=== PATIENT | female | born 1940 | race Caucasian/White ===

== ENCOUNTER 2024-03-11 14:26 | Outpatient (REF) | payer BC, SELFPAY ==
[2024-03-11 18:30] LABS: Blood Urea Nitrogen 26 mg/dL (9-16); Calcium 9.9 mg/dL (8.4-10.2); Carbon Dioxide 28 mmol/L (22-29); Chloride 106 mmol/L (96-108); Estimated Glomerular Filt Rate 57; Glucose Random 130 mg/dL (60-115); Potassium 4.2 mmol/L (3.3-5.1); Sodium 144 mmol/L (135-145)
== END 2024-03-11 14:27 | disposition home or self-care (01) ==
LOC: HO.WFDLDS 14:26
PROVIDERS: Visit Provider Internal Medicine
DX: N18.31 Chronic kidney disease, stage 3a (principal); Z13.1 Encounter for screening for diabetes mellitus
CPT/HCPCS: 36415; 82310; 82374; 82435; 82565; 82947; 84132; 84295; 84520

== ENCOUNTER 2024-12-23 09:23 | Outpatient (AMB) | payer BC, SELFPAY ==
--- OUTSIDE RECORDS SUMMARY | 2024-12-23 09:54 | XMS_ITS | Encounter Summary ---
Author Organization [facility] Address [address] [place] [address] [place] [address] Phone Care Team Providers Care Nonprofit Fundraiser Name Role Phone Rakesh Tse MD Primary Care Provider + Reason for Visit * Reason Onset Date Comments Appointment 12/16/2024 Encounter Details Date Type Department Care Team (Late st Contact Info) Description 12/16/2024 Telephone [email or web address] Rheumatology [address] [place] [address] Snehal Gentile MD, MPH [address] [facility], [address] [place] [address] [email or web address] Appointment Social History Tobacco Use Types Packs/Day Years Used Date Smoking Tobacco: Never Smokeless Tobacco: Never Alcohol Use Standard Drinks/Week Comments Never 0 (1 standard drink = 0.6 oz pur e alcohol) Education Answer Date Recorded Are you interested in more education? Not on branden e 11/15/2022 Are you concerned about learning? Not on file 11/15/2022 No 11/15/2022 No 11/15/2022 Digital Access Answer Date Recorded No 11/15/2022 No 11/15/2022 Reliable internet access at home? Not on file 11/15/2022 Device with a working camera? Not on file Comments Unknown Sex and Gender Information Value Date Recorded Sex Assigned at Not on file Legal Sex Female 10:09 AM EDT Gender Identity Not on file Sexual Orientation Not on file documented as of this encounter Progress Notes * Nicolle Rhodes - 12/16/2024 9:17 AM EDT Pt called in stated he 8 M F/u was not made please review and advise what , she will be seeing Central Support [facility] [employer] (Please do not reply to this user; this inbox is not monitored.) Thank you. documented in this encounter Plan of Treatment Not on file documented as of this encounter Visit Diagnoses Not on filedocumented in this encounter Care Teams Nonprofit Fundraiser Relationship Specialty Start Date End Date Rakesh Tse MD [address] [place] [address] PCP - General Internal Medicine 11/15/22 documented as of this encounter Additional Source Comments The information contained in this document represents components of the legal health record. It is not the complete legal health record.[facility]
== END 2024-12-23 10:09 | disposition home or self-care (01) ==
LOC: HO.HMGAL 09:23
PROVIDERS: PCP Internal Medicine; Visit Provider Registered Nurse Emergency
DX: J30.89 Other allergic rhinitis (principal)
CPT/HCPCS: 95117; 95165

== ENCOUNTER 2024-12-30 14:51 | Outpatient (AMB) | payer BC, SELFPAY ==
--- OUTSIDE RECORDS SUMMARY | 2024-10-08 04:00 | XMS_ITS | Continuity of Care Document ---
Author Organization [facility] Address [address] [place] [address] Phone Care Team Providers Care Steam Bone Press Tender Name Role Phone Malik MENDEZ, RVT, SEAN, [...] Surgical Stockings CVR Reveal Thigh High 20-30 Office/Oupt E&M New Pt 30 Mins- CT & [place] Surgical Stockings CVR Reveal Thigh High 20-30 Duplex Scan-extrem Veins; Uni/ CT & [place] N Advance Directives Directive Yes / No Effective Date File Name No Information Encounters Encounter Description Practice Location Reason(s) For Visit Diagnoses Date Provider Providers Copied on [facility]counter [facility] TIR[facility], [address] [place] [address] Dr Taylor 1000SuKassidy bro MD, [id number], tel:[phone] CVR - [facility] Encounter for follow-up examination after completed treatment for conditions other than malignant neoplasmVarico se veins of left lower extremity with pain 5 Malik MENDEZ RVT, SEAN Walton. [address] [place] [address], [place], [place], [id number] , [place]. [phone] Referring Provider: Rakesh Tse MD, [address] [place] [address], [address]. tel:[phone] [facility], [address] [place] [address] Dr Taylor 1000K[place] bro [place], [id number], [place] tel:[phone] R [facility] Chronic venous hypertension (idiopathic) with inflammation of left lower extremity 5 Malik MENDEZ RVT, SEAN Walton. [address] [place] [address], [place], [place], [id number] , [place]. tel:[phone] Referring Provider: Rakesh Tse MD, [address] [place] [address], [address]. tel:[phone] [place] [facility], [address] [place] [address] Dr Taylor 1000K[place] bro [place], [id number], [place] tel:[phone] CVR [facility] Varicose veins of left lower extremity with other complications 5 Malik MENDEZ RVT, RPVI Robert. [address] [place] [address], [place], [place], [id number] , [place]. tel:[phone] Referring Provider: Rakesh Tse MD, [address] [place] [address], [address]. tel:[phone] Office/Outpt E&M Established 15 Mins- CT & [place] [facility], [address] [place] [address] Dr Taylor 1000SuKassidy bro [place], [id number], [place] tel:[phone] [facility] Chronic venous hypertension (idiopathic) without complications of left lower extremityVenou s insufficiency (chronic) (peripheral)Pr uritus, unspecified Apr-3 0- 5 Malik MENDEZ RVT, RPVI Robert. [address] [place] [address], [facility], [place], [id number] , [place]. [phone] Referring Provider: Rakesh Tse MD, [address] [place] [address], [address]. tel:[phone] [facility], [address] [place] [address] [facility] [address] [address], [id number], [place] tel:[phone] [facility] Encounter for follow-up examination after completed treatment for conditions other than malignant neoplasmChroni c venous hypertension (idiopathic) with other complications of bilateral lower extremity Apr-3 0 5 Malik MENDEZ RVT, RPVI Robert. [address] [place] [address], [place], [place], [id number] , [place]. [phone] Referring Provider: Rakesh Tse MD, [address] [place] [address], [address]. tel:[phone] [place] [facility], [address] [place] [address] [facility] [address] [place] [address], [id number], [place] tel:[phone] [facility] Varicose veins of right lower extremity with inflammation Apr-2 5 Malik MENDEZ RVT, RPVI Robert. [address] [place] [address], [facility], [place], [id number] , [place]. [phone] Referring Provider: Rakesh Tse MD, [address] [place] [address], [address]. tel:[phone] [facility], [address] [place] [address] [facility] [address] [address], [id number], [place] tel:[phone] [facility] Chronic venous hypertension (idiopathic) with inflammation of right lower extremity Apr-2 2 5 Malik MENDEZ RVT, RPVI Robert. [address] [place] [address], [facility], [place], [id number] , [place]. tel:[phone] Referring Provider: Rakesh Tse MD, [address] [place] [address], [address]. tel:[phone] [facility], [address] [place] [address] Dr Taylor 1000SuKassidy bro [place], [id number], [place] tel:[phone] CVR - [place] [facility] [place] No Information 5 Malik MENDEZ RVT, SEAN Walton. [address] [place] [address], [facility] [place], [id number] , [place]. [phone] Office/Outpt E&M Established 10 Mins- Telemedicine CT & [place] [facility], [address] [place] [address] Dr Taylor 999K[place] bro [place], [id number], [place] tel:[phone] CVR - [facility] Non-pressure chronic ulcer of other part of right foot with unspecified severityChroni c venous hypertension (idiopathic) with ulcer and inflammation of right lower extremityCramp and spasmPruritus, unspecified 5 Malik MENDEZ RVT, SEAN Walton. [address] [place] [address], [facility] [place], [id number] , [place]. tel:[phone] Referring Provider: Rakesh Tse MD, [address] [place] [address], [address]. tel:[phone] [facility], [address] [place] [address] Dr Taylor 1000SuK[place]idy bro [place], [id number], [place] tel:[phone] CVR - [facility] Chronic venous hypertension (idiopathic) without complications of bilateral lower extremity 4 Malik MENDEZ RVT, RPVI Robert. [address] [place] [address], [facility] [place], [id number] , [place]. tel:[phone] Office/Oupt E&M New Pt 30 Mins- CT & [place] [facility], [address] [place] [address] Dr Taylor 1000K[place], [id number], [place] tel:[phone] CVR - [place] [facility] [place] Chronic venous hypertension (idiopathic) with other complications of right lower extremityNon-p ressure chronic ulcer of other part of right foot with unspecified severityVenous insufficiency (chronic) (peripheral)Pr uritus, unspecified 4 Malik MENDEZ RVT, SEAN Walton. [address] [place] [address], [place] [address], [place], [place], [id number] , [place]. tel:[phone] Referring Provider: Rakesh Tse MD, [address] [place] [address], [address]. tel:[phone] [facility], [address], [place], [id number], tel:[phone] R [facility] Varicose veins of right lower extremity with pain 4 Malik MENDEZ RVT, SEAN Walton. [address] [place] [address], [place], [place], [id number] , [place]. tel:[phone] Referring Provider: Rakesh Tse MD, [address] [place] [address], [address]. tel:[phone] Family History Family Member Type Diagnosis Age At Onset No Information Payers Payer name Insurance type Covered democrat ID Rony benitez(s) [facility] [id number] Social History Type Description Quantity Date Captured [...] part of right foot with unspecified severity Diet education Related to Body mass index (BMI) 34.0-34.9, adult Compression stocking usage as conservative measure Related to Chronic venous hypertension (idiopathic) with other complications of right lower extremity Patient education booklet given Related to Chronic venous hypertension (idiopathic) with other complications of right lower extremity Lifestyle education Related to B sipke mass index (BMI) 34.0-34.9, adult Giving Encouragement to exercise Related to Body mass index (BMI) 34.0-34.9, adult Assessments Type Assessment Date No Information Patient Care Teams Name Effective Dates (start - stop) Status Members No Information
--- OUTSIDE RECORDS SUMMARY | 2024-12-30 16:31 | XMS_ITS | Clinical Summary ---
Author Organization [facility] Address [address] [place] [phone] Phone Care Team Providers Care Soc Analyst Name Role Phone Rakesh Tse MD Primary Care Provider + Allergies Active Allergy Reactions Criticality Noted Date Comments Cefadroxil 11/22/2022 Cephradine Rash Low 11/22/2022 Clarithromycin 11/22/2022 Honey 11/29/2023 Throat tightness Methenamine 09/03/2015 Nitrofurantoin 11/22/2022 Sulfa (Sulfonamide Antibiotics) Rash Low 11/07 Trimethoprim 11/22/2022 Medications acetaminophen (TYLENOL ARTHRITIS PAIN) 650 MG CR tablet Take 650 mg by mouth every 8 (eight) hours as needed. 3 Active cholecalciferol (VITAMIN D3) 25 MCG (1,000 unit) tablet Take 1,000 Units by mouth daily. Active cranberry extract 425 mg Cap capsule Take 450 mg by mouth daily. (2) tablets daily Active PROLIA 60 mg/mL Syrg subcutaneous syringe every 6 (six) months. 3 Active diclofenac sodium (VOLTAREN) 1 % Gel Apply topically as needed. 3 Active SYNTHROID 75 mcg tablet Take 75 mcg by mouth daily. 3 Active multivitamin with minerals tablet Take by mouth daily. Active oxyCODONE (OXY-IR) 5 mg capsule Take 5 mg by mouth daily as needed. 3 Active psyllium husk 3.4 gram/5.4 gram Powd Take by mouth. Activ e albuterol 90 mcg/actuation inhaler Inhale 2 puffs into the lungs every 6 (six) hours as needed for wheezing. Active docusate sodium (COLACE) 50 MG capsule Take 50 mg by mouth 2 (two) times a day. Active ezetimibe (ZETIA) 10 mg tablet Take 10 mg by mouth daily. Active predniSONE (DELTASONE) 1 MG tabletIndications :Systemic lupus erythematosus, unspecified SLE type, unspecified organ involvement status Take 3 tablets (3 mg total) by mouth daily. 270 tablet 1 5 Active Active Problems Problem Noted Date Diagnosed Date Systemic lupus erythematosus 11/22/2022 Assessment & Plan (11/29/2023 2:57 PM EDT): SLE appears stable on prednisone 3 mg daily. Continue with same dose. Ensure daily calcium and vitamin D through foods and supplements. She will be seeing Dr. Tse tomorrow and will have labs done. Please fax me the results of these labs. Assessment & Plan (06/28/2023 3:30 PM EST): Lupus appears stable with no active symptoms on low-dose prednisone 3 mg daily. We discussed possibly lowering the dose of prednisone but she does not want to do this for fear of a flare. Assessment & Plan (11/22/2022 4:12 PM EDT): SLE very stable with no active symptoms on daily low-dose prednisone at 3 mg. Reminded her to take calcium and vitamin D daily to protect her bones. She also sees Dr. Mckinney for management of osteoporosis with Prolia. Sent in refills for prednisone. Primary osteoarthritis involving multiple joints 11/22/2022 Assessment & Plan (11/29/2023 2:57 PM EDT): Osteoarthritis in multiple joints with no swelling. She is already on Tylenol 650 mg and oxycodone as needed. She also uses topical Voltaren gel. Assessment & Plan (06/28/2023 3:31 PM EST): Osteoarthritis in multiple joints with no current swelling. She can continue with Tylenol 650 mg as needed as well as Oxycodone 5 mg twice a day. Assessment & Plan (11/22/2022 4:13 PM EDT): Degenerative osteoarthritis in multiple areas fairly well controlled on Tylenol 650 mg and topical Voltaren gel. Advised her to use oxycodone only for severe pain. Encounters Date Type Department Care Team Description 12/16/2024 Telephone [facility] Rheumatology [address] [place] [address] Snehal Gentile MD, MPH Appointment 10/08/2024 1:46 PM EDT - 10/08/2024 11:59 PM EDT Hospital Encounter [facility] [address] [place] [address] Joann Burden MD Discharge Disposition: Home or Self Care 10/08/2024 1:00 PM EDT Office Visit [facility] Rheumatology [address] [place] [address] Joann Burden MD Systemic lupus erythematosus, unspecified SLE type, unspecified organ involvement status (Primary Dx); Primary osteoarthritis involving multiple joints; Age-related osteoporosis without current pathological fracture; nursing home (current) use of systemic steroids from Last 3 Months Social History Tobacco Use Types Packs/Day Years [...] on file Sexual Orientation Not on file Last Filed Vital Signs Vital Sign Reading Time Taken Comments Blood Pressure 122/64 10/08/2024 12:57 PM EDT Pulse 86 10/08/2024 12:57 PM EDT Temperature - - Respiratory Rate 16 11/22/2022 10:37 AM EDT Oxygen Saturation 98% 10/08/2024 12:57 PM EDT Inhaled Oxygen Concentration - - Weight 94.3 kg (208 lb) 10/08/2024 12:57 PM EDT Height 166.4 cm (5' 5.51 ) 10/08/2024 12:57 PM E DT Body Mass Index 34.07 10/08/2024 12:57 PM EDT Plan of Treatment Health Maintenance Due Date Last Done Comments Adult Td,Tdap Booster 1942 TSH LEVEL 1942 DEPRESSION SCREENING 1954 OSTEOPOROSIS SCREENING INITIAL (ONE-TIME) 11/03/2007 RSV VACCINE (1 - 1-dose 75+ series) 2017 COVID-19 VACCINE ( season) 2024 11/04/2022, 03/17/2022, 02/18/2021, Additional history exists INFLUENZA VACCINE (#1) 2024 2, 12/30/2021, 01/19/2021, Additional history exists ZOSTER VACCINES Completed 01/16/2018, 10/12/2017 PNEUMOCOCCAL VACCINES (50+ years) Completed 11/04/2022 HEPATITIS A VACCINES Aged Out No long er eligible based on patient's age to complete this topic HIB VACCINES Aged Out No longer eligi ble based on patient's age to complete this topic MENINGOCOCCAL VACCINES (ACWY) Aged Out No longer eligible based on patient's age to complete this topic MENINGOCOCCAL VACCINES (B) Aged Out N o longer eligible based on patient's age to complete this topic Medical Devices Not on file Procedures Procedure Name Priority Date/Time Associated Diagnosis Comments TOTAL PROTEIN CREATININE RATIO, RANDOM URINE Routine 10/08/2024 2:17 PM EDT Systemic lupus erythematosus, unspecified SLE type, unspecified organ involvement status DOUBLE STRANDED DNA ANTIBODIES Routine 10/08/2024 2:04 PM EDT Systemic lupus erythematosus, unspecified SLE type, unspecified organ involvement status COMPLEMENT C3 Routine 10/08/2024 2:04 PM EDT Systemic lupus erythematosus, unspecified SLE type, unspecified organ involvement status COMPLEMENT C4 Routine 10/08/2024 2:04 PM EDT Systemic lupus erythematosus, unspecified SLE type, unspecified organ involvement status C-REACTIVE PROTEIN Routine 10/08/2024 2: 04 PM EDT Systemic lupus erythematosus, unspecified SLE type, unspecified organ involvement status SEDIMENTATION RATE (ESR) Routine 10/08/2024 2:04 PM EDT Systemic lupus erythematosus, unspecified SLE type, unspecified organ involvement status CBC Routine 10/08/2024 2:04 PM EDT Systemic lupus erythematosus, unspecified SLE type, unspecified organ involvement status COMPREHENSIVE METABOLIC PANEL Routine 10/08/2024 2:04 PM EDT Systemic lupus erythematosus, unspecified SLE type, unspecified organ involvement status from Last 3 Months Results * TOTAL PROTEIN CREATININE RATIO, RANDOM URINE (10/08/2024 2:17 PM EDT) Pathologist [facility] URINE TOTAL PROTEIN 10.0 mg/dL [facility] URINE CREATININE 82 mg/dL [facility] URINE TP CRE RATIO 0.12 0 - 0.19 [facility] Urine (Urine) 10/08/2024 2:1 7 PM EDT 10/08/2024 2:19 PM EDT us Joann Burden MD URINE ORDERABLES Final Result [address] [address] * (ABNORMAL) Comprehensive metabolic panel (10/08/2024 2:04 PM EDT) SODIUM 140 133 - 146 mmol/L [facility] POTASSIUM 4.6 3.3 - 5.1 mmol/L [facility] CHLORIDE 103 96 - 108 mmol/L [facility] CO2 28 21 - 35 mmol/L [facility] BUN 24(H) 6 - 19 mg/dL [facility] CREATININE 0.90 0.5 - 1.5 mg/dL [facility] GLUCOSE 115(H) 70 - 99 mg/dL [facility] ALBUMIN 4.2 3.9 - 4.8 g/dL [facility] TOTAL PROTEIN 7.2 6.5 - 8.0 g/dL [facility] CALCIUM 10.1 8.4 - 10.3 mg/dL [facility] ALKALINE PHOSPHATASE 76 39 - 117 U/L [facility] TOTAL BILIRUBIN <0.2 0.0 - 1.2 mg/dL [facility] AST 24 0 - 37 U/L [facility] ALT 12 0 - 40 U/L [facility] GLOBULIN 3.0 1 - 4.8 g/dL [facility] EGFR 64 >59 mL/min/1.7 3m2 [facility] Comment:Estimated glomerular filtration rate calculated using the CKD-EPI refit equation. ANION GAP 14 10 - 20 mmol/L [facility] Blood 10/08/2024 2:04 PM EDT 10/08/2024 2:08 PM EDT us Joann Burden MD LAB BLOOD ORDERABLES Final Res ult [address] [address] * Double stranded DNA antibodies (10/08/2024 2:04 PM EDT) ANTI DSDNA ANTIBODY Negative at 1:10 [facility] Comment: Performing Pathologist, Nancy Vaughn M.D., Ph.D. [id number] Normal: Negative at 1:10 To interpret a negative test for anti-elim ira or double stranded DNA antibodies in a patient suspected of having systemic lupus erythematosus, the following limitation should be noted. Anti-double stranded DNA antibodies are usually detected in SLE patients with active disease, especially in those with active renal disease. Anti-DNA antibodies are usually not detected in SLE patients with spontaneous or drug-induced remissions. Blood 10/08/2024 2:04 PM EDT 10/08/2024 2:08 PM EDT us Joann Burden MD LAB BLOOD ORDERABLES Final Res ult [address] [address] * Sedimentation rate (ESR) (10/08/2024 2:04 PM EDT) ESR 18 0 - 30 mm/h [facility] Blood 10/08/2024 2:04 PM EDT 10/08/2024 2:08 PM EDT us Joann Burden MD LAB BLOOD ORDERABLES Final Res ult Performing Organization Address [facility]/ZIP Co de Phone Number [address] [address] * (ABNORMAL) CBC (10/08/2024 2:04 PM EDT) WBC 7.39 4.00 - 11.00 K/uL [facility] RBC 4.41 4.00 - 5.20 M/uL [facility] HGB 13.2 12.0 - 16.0 g/dL [facility] HCT 41.6 36.0 - 46.0 % [facility] PLT 204 150 - 450 K/uL [facility] MCV 94.3 80.0 - 100.0 fL [facility] MCH 29.9 27.0 - 31.0 pg [facility] MCHC 31.7(L) 32.0 - 36.0 g/dL [facility] RDW 14.0 11.5 - 14.5 % [facility] MPV 11.9 8.4 - 12.0 fL [facility] NRBC 0.00 0.00 /100 WBCs [facility] ABSOLUTE NRBC 0.00 0.00 K/uL [facility] Blood 10/08/2024 2:04 PM EDT 10/08/2024 2:08 PM EDT Joann Burden MD LAB BLOOD ORDERABLES Final Res ult [address] [address] * Complement C3 (10/08/2024 2:04 PM EDT) C3 118 81 - 157 mg/dl [facility] Blood 10/08/2024 2:04 PM EDT 10/08/2024 2:08 PM EDT Joann Burdne MD LAB BLOOD ORDERABLES Final Res ult [address] [address] * Complement C4 (10/08/2024 2:04 PM EDT) C4 16 12 - 39 mg/dL [facility] Blood 10/08/2024 2:04 PM EDT 10/08/2024 2:08 PM EDT Joann Burden MD LAB BLOOD ORDERABLES Final Res ult Performing Organization Address City/[facility]/ZIP Co de Phone Number [address] [address] * (ABNORMAL) C-Reactive Protein (10/08/2024 2:04 PM EDT) C REACTIVE PROTEIN 29.2(H) 0.0 - 4.0 mg/L [facility] Blood 10/08/2024 2:04 PM EDT 10/08/2024 2:08 PM EDT Joann Burden MD LAB BLOOD ORDERABLES Final Res ult [address] [address] from Last 3 Months Insurance [facility] [place] [address] [place] [address] [place] [address] [place] [address] [place] [address] Care Teams Soc Analyst Relationship Specialty Start Date End Date Rakesh Tse MD [address] [place] [id number] PCP - General Internal Medicine 11/15/22 Additional Source Comments The information contained in this document represents components of the legal health record. It is not the complete legal health record.[facility]
--- OUTSIDE RECORDS SUMMARY | 2024-12-30 16:31 | XMS_ITS | Encounter Summary ---
Author Organization [facility] Address [address] [place] [address] [place] [phone] Phone Care Team Providers Care Travel Guide Name Role Phone Rakesh Tse MD Primary Care Provider + Reason for Visit * Reason Onset Date Comments Appointment 12/16/2024 Encounter Details Date Type Department Care Team (Late st Contact Info) Description 12/16/2024 Telephone [facility] Rheumatology [address] [place] [address] Snehal Gentile MD, MPH [address] [facility], [address] [place] [address] [email or web address] Appointment Social History Tobacco Use Types Packs/Day [...] , she will be seeing Central Support Drafter Heating And Ventilating (Please do not reply to this user; this inbox is not monitored.) Thank you. documented in this encounter Plan of Treatment Not on file documented as of this encounter Visit Diagnoses Not on filedocumented in this encounter Care Teams Travel Guide Relationship Specialty Start Date End Date Rakesh Tse MD [address] [place] [id number] PCP - General Internal Medicine 11/15/22 documented as of this encounter Additional Source Comments The information contained in this document represents components of the legal health record. It is not the complete legal health record.[facility]
== END 2024-12-31 13:08 | disposition home or self-care (01) ==
LOC: HO.HMGAL 14:51
PROVIDERS: PCP Internal Medicine; Visit Provider Registered Nurse Emergency
DX: J30.89 Other allergic rhinitis (principal)
CPT/HCPCS: 95117; 95165

== ENCOUNTER 2025-01-08 14:00 | Outpatient (AMB) | payer BC, SELFPAY ==
--- OUTSIDE RECORDS SUMMARY | 2024-10-08 04:00 | XMS_ITS | Continuity of Care Document ---
Author Organization [facility] Address [address] [place] [address] Phone Care Team Providers Care Geophysical Laboratory Chief Name Role Phone Malik MENDEZ, RVT, SEAN, Anton Unavailable U navailable Allergies, Adverse Reactions, Alerts Substance Reaction Status Criticality nitroglycerin Active No Information cefadroxil Active No Information trimethoprim Active No Information clarithromycin Active No Informatio n Sulfa (Sulfonamide Antibiotics) Active No Information honey Active No Information Procedures Procedure Date Duplex Scan-extrem Veins; Uni/ CT & [place] J Varithena, Single Truncal Vein - CT & [place] Endovenous Rf, 1st Vein- CT & [place] 2024 Office/Outpt E&M Established 15 Mins- CT & [place] Duplex Scan-extrem Veins; Comp- CT & [place] Varithena, Single Truncal Vein - CT & [place] Endovenous Rf, 1st Vein- CT & [place] 2024 Office/Outpt E&M Established 10 Mins- Te lemedicine CT & [place] Surgical Stockings CVR Reveal Thigh High -30 Office/Oupt E&M New Pt 30 Mins- CT & [place] Surgical Stockings CVR Reveal Thigh High 20-30 Duplex Scan-extrem Veins; Uni/ CT & [place] N Advance Directives Directive Yes / No Effective Date File Name No Information Encounters Encounter Description Practice Location Reason(s) For Visit Diagnoses Date Provider Providers Copied on Encounter [facility], [address] [place] [address] Dr Taylor 1000SuKassidy bro [place], [id number], tel:[phone] CVR - [facility] Encounter for follow-up examination after completed treatment for conditions other than malignant neoplasmVarico se veins of left lower extremity with pain 5 Malik MENDEZ RVT, SEAN Walton. [address] [place] [address], [place], [place], [id number] , [place]. [phone] Referring Provider: Rakesh Tse MD, [address] [place] [address], [address]. tel:[phone] [facility], [address] [place] [address] Dr Taylor 1000K[place]idy bro [place], [id number], [place] tel:[phone] R [facility] Chronic venous hypertension (idiopathic) with inflammation of left lower extremity 5 Malik MENDEZ RVT, SEAN Walton. [address] [place] [address], [place], [place], [id number] , [place]. tel:[phone] Referring Provider: Rakesh Tse MD, [address] [place] [address], [address]. tel:[phone] [place] [facility], [address] [place] [address] Dr Taylor 1000[place]idy bro [place], [id number], [place] tel:[phone] CVR [facility] Varicose veins of left lower extremity with other complications 5 Malik MENDEZ RVT, RPVI Robert. [address] [place] [address], [place], [place], [id number] , [place]. tel:[phone] Referring Provider: Rakesh Tse MD, [address] [place] [address], [address]. tel:[phone] Office/Outpt E&M Established 15 Mins- CT & [place] [facility], [address] [place] [address] Dr Taylor 1000SuKassidy bro [place], [id number], [place] tel:[phone] [facility] Chronic venous hypertension (idiopathic) without complications of left lower extremityVenou s insufficiency (chronic) (peripheral)Pr uritus, unspecified Apr-3 0- 5 Malik MENDEZ RVT, RPVI Robert. [address] [place] [address], [facility], [place], [id number] , [place]. [phone] Referring Provider: Rakesh Tse MD, [address] [place] [address], [address]. tel:[phone] [facility], [address] [place] [address] [facility] [address] [place] [address], [id number], [place] tel:[phone] [facility] Encounter for follow-up examination after completed treatment for conditions other than malignant neoplasmChroni c venous hypertension (idiopathic) with other complications of bilateral lower extremity Apr-3 0 5 Malik MENDEZ RVT, RPVI Robert. [address] [place] [address], [place], [place], [id number] , [place]. [phone] Referring Provider: Rakesh Tse MD, [address] [place] [address], [address]. tel:[phone] [place] [facility], [address] [place] [address] [facility] [address] [address], [id number], [place] tel:[phone] [facility] Varicose veins of right lower extremity with inflammation Apr-2 5 Malik MENDEZ RVT, RPVI Robert. [address] [place] [address], [facility], [place], [id number] , [place]. [phone] Referring Provider: Rakesh Tse MD, [address] [place] [address], [address]. tel:[phone] [facility], [address] [place] [address] [facility] [address] [address], [id number], [place] tel:[phone] [facility] Chronic venous hypertension (idiopathic) with inflammation of right lower extremity Apr-2 2 5 Malik MENDEZ RVT, RPVI Robert. [address] [place] [address], [facility], [place], [id number] , [place]. tel:[phone] Referring Provider: Rakesh Tse MD, [address] [place] [address], [address]. tel:[phone] [facility], [address] [place] [address] Dr Taylor 1000SuKassidy bro [place], [id number], [place] tel:[phone] [facility] - [place] [facility] [place] No Information 5 Malik MENDEZ RVT, SEAN Walton. [address] [place] [address], [facility] [place], [id number] , [place]. [phone] Office/Outpt E&M Established 10 Mins- Telemedicine CT & [place] [facility], [address] [place] [address] Dr Taylor 999K[place]idy bro [place], [id number], [place] tel:[phone] CVR - [facility] Non-pressure chronic ulcer of other part of right foot with unspecified severityChroni c venous hypertension (idiopathic) with ulcer and inflammation of right lower extremityCramp and spasmPruritus, unspecified 5 Malik MENDEZ RVT, SEAN Walton. [address] [place] [address], [facility] [place], [id number] , [place]. tel:[phone] Referring Provider: Rakesh Tse MD, [address] [place] [address], [address]. tel:[phone] [facility], [address] [place] [address] Dr Taylor 1000SuKassidy bro [place], [id number], [place] tel:[phone] CVR - [facility] Chronic venous hypertension (idiopathic) without complications of bilateral lower extremity 4 Malik MENDEZ RVT, RPVI Robert. [address] [place] [address], [facility] [place], [id number] , [place]. tel:[phone] Office/Oupt E&M New Pt 30 Mins- CT & [place] [facility], [address] [place] [address] Dr Taylor 1000[place] Stone [place], [id number], [place] tel:[phone] CVR - [place] [facility] [place] Chronic venous hypertension (idiopathic) with other complications of right lower extremityNon-p ressure chronic ulcer of other part of right foot with unspecified severityVenous insufficiency (chronic) (peripheral)Pr uritus, unspecified 4 Malik MENDEZ RVT, SEAN Walton. [address] [place] [address], [place] [address], [place], [place], [id number] , [place]. tel:[phone] Referring Provider: Rakesh Tse MD, [address] [place] [address], [address]. tel:[phone] [facility], [address], [place], [id number], tel:[phone] R [facility] Varicose veins of right lower extremity with pain 4 Malik MENDEZ RVT, SEAN Walton. [address] [place] [address], [place], [place], [id number] , [place]. tel:[phone] Referring Provider: Rakesh Tse MD, [address] [place] [address], [address]. tel:[phone] Family History Family Member Type Diagnosis Age At Onset No Information Payers Payer name Insurance type Covered libertarian ID Rony benitez(s) [facility] [id number] Social History Type Description Quantity Date Captured Comments Sex Female Smoking Status No Information Chief Complaint And Reason For Visit No Information Reason For Referral Reason For Referral No Information Plan Of Treatment Date Type Action Status Goal Diet education completed Goal Diet education completed Referral Ordered: Weight management: Referral to physician timeframe: 3 Months (related to Body mass index (BMI) 34.0-34.9, adult) ordered Referral Ordered: Weight management: Referral to physician timeframe: 3 Months (related to Body mass index (BMI) 34.0-34.9, adult) ordered Appointment Angélica Myers BOOKED Appointment Angélica Myers BOOKED History Of Present Illness Encounter Date Complaint History Of Prese nt Illness No Information Functional Status Date Functional Assessmen t No Information Instructions Date Instruction Additional Infor mation Pre and post instruc tions reviewed and provided Related to Chronic venous hypertension (idiopathic) without complications of left lower extremity Patient education booklet given Related to Chronic venous hypertension (idiopathic) without complications of left lower extremity Lifestyle education Related to B spike mass index (BMI) 34.0-34.9, adult Giving Encouragement to exercise Related to Body mass index (BMI) 34.0-34.9, adult Diet education Related to Body mass index (BMI) 34.0-34.9, adult Compression stocking usage as conservative measure Related to Non-pressure chronic ulcer of other part of right foot with unspecified severity Patient education booklet given Related to Non-pressure chronic ulcer of other part of right foot with unspecified severity Giving Encouragement to exercise Related to Body mass index (BMI) 34.0-34.9, adult Lifestyle education Related to B spike mass index (BMI) 34.0-34.9, adult Patient education booklet given Related to Chronic venous hypertension (idiopathic) with other complications of right lower extremity Compression stocking usage as conservative measure Related to Chronic venous hypertension (idiopathic) with other complications of right lower extremity Diet education Related to Body mass index (BMI) 34.0-34.9, adult Assessments Type Assessment Date No Information Patient Care Teams Name Effective Dates (start - stop) Status Members No Information
--- OUTSIDE RECORDS SUMMARY | 2025-01-08 16:16 | XMS_ITS | Clinical Summary ---
Author Organization [facility] Address [address] [place] [phone] Phone Care Team Providers Care Auto Claim Representative Name Role Phone Rakesh Tse MD Primary [...] Type Department Care Team Description 12/16/2024 Telephone [facility] Rheumatology [address] [place] [address] Snehal Gentile MD, MPH Appointment 10/08/2024 1:46 PM EDT - 10/08/2024 11:59 PM EDT Hospital Encounter [facility] [address] [place] [address] Joann Burden MD Discharge Disposition: Home or Self Care 10/08/2024 1:00 PM EDT Office Visit [facility] Rheumatology [address] [place] [address] Joann Burden MD Systemic lupus erythematosus, unspecified SLE type, unspecified organ involvement status (Primary Dx); Primary osteoarthritis involving multiple joints; Age-related osteoporosis without current pathological fracture; intermediate (current) use of systemic steroids from Last [...] [facility] URINE TOTAL PROTEIN 10.0 mg/dL [facility] URINE CREATININE 82 mg/dL [facility] URINE TP CRE RATIO 0.12 0 - 0.19 [facility] Urine (Urine) 10/08/2024 2:1 7 PM EDT 10/08/2024 2:19 PM EDT us Joann Burden MD URINE ORDERABLES Final Result [address] [address] * (ABNORMAL) Comprehensive metabolic panel (10/08/2024 2:04 PM EDT) SODIUM 140 133 - 146 mmol/L [facility] POTASSIUM 4.6 3.3 - 5.1 mmol/L [facility] CHLORIDE 103 96 - 108 mmol/L [facility] CO2 28 21 - 35 mmol/L [facility] BUN 24(H) 6 - 19 mg/dL [facility] CREATININE 0.90 0.5 - 1.5 mg/dL [facility] GLUCOSE 115(H) 70 - 99 mg/dL [facility] ALBUMIN 4.2 3.9 - 4.8 g/dL [facility] TOTAL PROTEIN 7.2 6.5 - 8.0 g/dL [facility] CALCIUM 10.1 8.4 - 10.3 mg/dL [facility] ALKALINE PHOSPHATASE 76 39 - 117 U/L [facility] TOTAL BILIRUBIN <0.2 0.0 - 1.2 mg/dL [facility] AST 24 0 - 37 U/L [facility] ALT 12 0 - 40 U/L [facility] GLOBULIN 3.0 1 - 4.8 g/dL [facility] EGFR 64 >59 mL/min/1.7 3m2 [facility] Comment:Estimated glomerular filtration rate calculated using the CKD-EPI refit equation. ANION GAP 14 10 - 20 mmol/L [facility] Blood 10/08/2024 2:04 PM EDT 10/08/2024 2:08 PM EDT us Joann Burden MD LAB BLOOD ORDERABLES Final Res ult [address] [address] * Double stranded DNA antibodies (10/08/2024 2:04 PM EDT) ANTI DSDNA ANTIBODY Negative at 1:10 [facility] Comment: Performing Pathologist, Nancy Vaughn M.D., Ph.D. [phone] Normal: Negative at 1:10 To interpret a negative test for anti-upper skagit or double stranded DNA antibodies in a [...] MD LAB BLOOD ORDERABLES Final Res ult [address] [address] * Sedimentation rate (ESR) (10/08/2024 2:04 PM EDT) ESR 18 0 - 30 mm/h [facility] Blood 10/08/2024 2:04 PM EDT 10/08/2024 2:08 PM EDT us Joann Burden MD LAB BLOOD ORDERABLES Final Res ult Performing Organization Address [facility]/ZIP Co de Phone Number [address] [address] * (ABNORMAL) CBC (10/08/2024 2:04 PM EDT) WBC 7.39 4.00 - 11.00 K/uL [facility] RBC 4.41 4.00 - 5.20 M/uL [facility] HGB 13.2 12.0 - 16.0 g/dL [facility] HCT 41.6 36.0 - 46.0 % [facility] PLT 204 150 - 450 K/uL [facility] MCV 94.3 80.0 - 100.0 fL [facility] MCH 29.9 27.0 - 31.0 pg [facility] MCHC 31.7(L) 32.0 - 36.0 g/dL [facility] RDW 14.0 11.5 - 14.5 % [facility] MPV 11.9 8.4 - 12.0 fL [facility] NRBC 0.00 0.00 /100 WBCs [facility] ABSOLUTE NRBC 0.00 0.00 K/uL [facility] Blood 10/08/2024 2:04 PM EDT 10/08/2024 2:08 PM EDT Joann Burden MD LAB BLOOD ORDERABLES Final Res ult [address] [address] * Complement C3 (10/08/2024 2:04 PM EDT) C3 118 81 - 157 mg/dl [facility] Blood 10/08/2024 2:04 PM EDT 10/08/2024 2:08 PM EDT Joann Burden MD LAB BLOOD ORDERABLES Final Res ult [address] [address] * Complement C4 (10/08/2024 2:04 PM EDT) C4 16 12 - 39 mg/dL [facility] Blood 10/08/2024 2:04 PM EDT 10/08/2024 2:08 PM EDT Joann Burden MD LAB BLOOD ORDERABLES Final Res ult Performing Organization Address City/[facility]/ZIP Co de Phone Number [address] [address] * (ABNORMAL) C-Reactive Protein (10/08/2024 2:04 PM EDT) C REACTIVE PROTEIN 29.2(H) 0.0 - 4.0 mg/L [facility] Blood 10/08/2024 2:04 PM EDT 10/08/2024 2:08 PM EDT Joann Burden MD LAB BLOOD ORDERABLES Final Res ult [address] [address] from Last 3 Months Insurance [facility] [address] [place] [address] [place] [address] [place] [address] [place] [address] Care Teams Auto Claim Representative Relationship Specialty Start Date End Date Rakesh Tse MD [address] [place] [id number] PCP - General Internal Medicine 11/15/22 Additional Source Comments The information contained in this document represents components of the legal health record. It is not the complete legal health record.[facility]
--- OUTSIDE RECORDS SUMMARY | 2025-01-08 16:16 | XMS_ITS | Encounter Summary ---
Author Organization [facility] Address [address] [place] [address] [place] [address] Phone Care Team Providers Care Box Shook Patcher Name Role Phone Rakesh Tse MD Primary Care Provider + Reason for Visit * Reason Onset Date Comments Appointment 12/16/2024 Encounter Details Date Type Department Care Team (Late st Contact Info) Description 12/16/2024 Telephone [facility] Rheumatology [address] [place] [address] Snehal Gentile MD, MPH [address] [facility], [address] [place] [address] [email or web address] Appointment Social History Tobacco [...] , she will be seeing Central Support Side Framer (Please do not reply to this user; this inbox is not monitored.) Thank you. documented in this encounter Plan of Treatment Not on file documented as of this encounter Visit Diagnoses Not on filedocumented in this encounter Care Teams Box Shook Patcher Relationship Specialty Start Date End Date Rakesh Tse MD [address] [place] [address] PCP - General Internal Medicine 11/15/22 documented as of this encounter Additional Source Comments The information contained in this document represents components of the legal health record. It is not the complete legal health record.[facility]
== END 2025-01-08 14:09 | disposition home or self-care (01) ==
LOC: HO.HMGAL 14:00
PROVIDERS: PCP Internal Medicine; Visit Provider Registered Nurse Emergency
DX: J30.89 Other allergic rhinitis (principal)
CPT/HCPCS: 95117; 95165

== ENCOUNTER 2025-01-13 08:58 | Outpatient (AMB) | payer BC, SELFPAY ==
--- OUTSIDE RECORDS SUMMARY | 2025-01-13 10:08 | XMS_ITS | Encounter Summary ---
Author Organization [facility] Address [address] [place] [address] [place] [address] Phone Care Team Providers Care Structural Metal Worker Name Role Phone Rakesh Tse MD Primary Care Provider + Reason for Visit * Reason Onset Date Comments Appointment 12/16/2024 Encounter Details Date Type Department Care Team (Late st Contact Info) Description 12/16/2024 Telephone [facility] Rheumatology [address] [place] [address] Snehal Gentile MD, MPH [address] [facility], [address] [place] [address] [email or web address] Appointment Social History Tobacco Use Types Packs/Day [...] as of this encounter Progress Notes * Dayanara Moore - 01/10/2025 10:02 AM EDT Schedule is not out yet for 6 month fuv-will call patient back when it is * Bryn Schmitz - 01/09/2025 4:36 PM EDT Pt called to schedule with Rheum Angélica Crystal, Schedule is not available for me to schedule a EstPt Appt. Please call and schedule with pt. Pt gave permission to leave a detailed message with a date/time of appt. Central Support Irrigation Technician (Please do not reply to this user; this inbox is not monitored.) Thank you. * Dayanara Moore - 01/09/2025 2:08 PM EDT LVMTCB and schedule EST PT NEW PRACTICE with Angélica Crystal * Nicolle Rhodes - 12/16/2024 9:17 AM EDT Pt called in stated he 6 M F/u was not made please review and advise what , she will be seeing Central Support Irrigation Technician (Please do not reply to this user; this inbox is not monitored.) Thank you. documented in this encounter Plan of Treatment Not on file documented as of this encounter Visit Diagnoses Not on filedocumented in this encounter Care Teams Structural Metal Worker Relationship Specialty Start Date End Date Rakesh Tse MD [address] [place] [phone] PCP - General Internal Medicine 11/15/22 documented as of this encounter Additional Source Comments The information contained in this document represents components of the legal health record. It is not the complete legal health record.[facility]
--- OUTSIDE RECORDS SUMMARY | 2025-01-13 10:08 | XMS_ITS | Clinical Summary ---
Author Organization [facility] Address [address] [place] [phone] Phone Care Team Providers Care Teacher Specialist Name Role Phone Rakesh Tse MD Primary [...] Type Department Care Team Description 12/16/2024 Telephone [facility] Rheumatology [address] [place] [address] Snehal Gentile MD, MPH Appointment from Last 3 Months Social History Tobacco [...] VACCINE (1 - 1-dose 75+ series) 2017 INFLUENZA VACCINE (#1) 2024 , 12/30/2021, 01/19/2021, Additional history exists COVID-19 VACCINE (2024- season) 2025 11/04/2022, 03/17/2022, 02/18/2021, Additional history exists ZOSTER VACCINES Completed 01/16/2018, [...] this topic Medical Devices Not on file [place] [place] [address] [facility] [place] [place] [address] [place] [address] [place] [address] [facility] Care Teams Teacher Specialist Relationship Specialty Start Date End Date Rakesh Tse MD [address] [place] [id number] PCP - General Internal Medicine 11/15/22 Additional Source Comments The information contained in this document represents components of the legal health record. It is not the complete legal health record.[facility]
== END 2025-01-13 08:59 | disposition home or self-care (01) ==
LOC: HO.HMGAL 08:58
PROVIDERS: PCP Internal Medicine; Visit Provider Registered Nurse Emergency
DX: J30.89 Other allergic rhinitis (principal)
CPT/HCPCS: 95117; 95165

== ENCOUNTER 2025-01-20 09:20 | Outpatient (AMB) | payer BC, SELFPAY ==
--- OUTSIDE RECORDS SUMMARY | 2025-01-20 11:03 | XMS_ITS | Encounter Summary ---
Author Organization [facility] Address [address] [place] [address] [place] [address] Phone Care Team Providers Care Embossed Or Impressed Lettering Painter Name Role Phone Rakesh Tse MD Primary Care Provider + Reason for Visit * Reason Onset Date Comments Appointment 12/16/2024 Encounter Details Date Type Department Care Team (Late st Contact Info) Description 12/16/2024 Telephone [facility] Rheumatology [address] [place] [address] Snehal Gentile MD, MPH [address] [facility], [address] [place] [address] [email or web address] Appointment Social History Tobacco Use Types Packs/Day [...] as of this encounter Progress Notes * Alonso Morgan - 01/15/2025 1:38 PM EDT Pt called in, said she was contacted to schedule. Please contact and advise. Central Support Senior Policy Advisor (Please do not reply to this user; this inbox is not monitored.) Thank you. Central Support Senior Policy Advisor (Please do not reply to this user; this inbox is not monitored.) Thank you. * Dayanara Moore - 01/10/2025 10:02 AM [...] with a date/time of appt. Central Support Senior Policy Advisor (Please do not reply to this user; this inbox is not monitored.) Thank you. * Dayanara Moore - 01/09/2025 2:08 PM EDT LVMTCB and schedule EST PT NEW PRACTICE with Angélica Crystal * Nicolle Rhodes - 12/16/2024 9:17 AM EDT Pt called in stated he 6 M F/u was not made please review and advise what , she will be seeing Central Support Senior Policy Advisor (Please do not reply to this user; this inbox is not monitored.) Thank you. documented in this encounter Plan of Treatment Upcoming Encounters Date Type Department Care Team (Late st Contact Info) Description 04/15/2025 2:00 PM EST Office Visit [facility] Rheumatology [address] [place] [address] Angélica Crystal, [address] [facility], [address] [place] [address] [email or web address] documented as of this encounter Visit Diagnoses Not on filedocumented in this encounter Care Teams Embossed Or Impressed Lettering Painter Relationship Specialty Start Date End Date Rakesh Tse MD [address] [place] [phone] PCP - General Internal Medicine 11/15/22 documented as of this encounter Additional Source Comments The information contained in this document represents components of the legal health record. It is not the complete legal health record.[facility]
--- OUTSIDE RECORDS SUMMARY | 2025-01-20 11:03 | XMS_ITS | Clinical Summary ---
Author Organization [facility] Address [address] [place] [phone] Phone Care Team Providers Care Director Of Materials Management Name Role Phone Rakesh Tse MD Primary [...] Type Department Care Team Description 12/16/2024 Telephone [facility] Rheumatology [address] [place] [address] Snehal Gentile MD, MPH Appointment from Last [...] 10/08/2024 12:57 PM EDT Plan of Treatment Upcoming Encounters Date Type Department Care Team (Late st Contact Info) Description 04/15/2025 2:00 PM EST Office Visit [facility] Rheumatology [address] [place] [address] Angélica Crystal DO [address] [facility], [address] [place] [address] [email or web address] Health Maintenance Due Date Last Done Comments Adult Td,Tdap Booster 1942 TSH LEVEL 1942 DEPRESSION SCREENING 1954 OSTEOPOROSIS SCREENING INITIAL (ONE-TIME) 11/03/2007 RSV VACCINE (1 - 1-dose 75+ series) 2017 INFLUENZA VACCINE (#1) 2024 2, 12/30/2021, 01/19/2021, Additional history exists COVID-19 VACCINE ( season) 2025 11/04/2022, 03/17/2022, 02/18/2021, Additional history [...] topic Medical Devices Not on file Insurance [facility] [place] [address] [place] [address] [place] [address] Care Teams Director Of Materials Management Relationship Specialty Start Date End Date Rakesh Tse MD [address] [place] [phone] PCP - General Internal Medicine 11/15/22 Additional Source Comments The information contained in this document represents components of the legal health record. It is not the complete legal health record.[facility]
== END 2025-01-20 09:22 | disposition home or self-care (01) ==
LOC: HO.HMGAL 09:20
PROVIDERS: PCP Internal Medicine; Visit Provider Registered Nurse Emergency
DX: J30.89 Other allergic rhinitis (principal)
CPT/HCPCS: 95117; 95165

== ENCOUNTER 2025-01-27 09:59 | Outpatient (AMB) | payer BC, SELFPAY ==
--- OUTSIDE RECORDS SUMMARY | 2025-01-27 12:13 | XMS_ITS | Clinical Summary ---
Author Organization [facility] Address [address] [place] [phone] Phone Care Team Providers Care Roofing Applicator Name Role Phone Rakesh Tse MD Primary [...] Type Department Care Team Description 12/16/2024 Telephone [facility] Rheumatology [address] [place] [address] Snehal Gentile MD, MPH Appointment from Last [...] Description 04/15/2025 2:00 PM EST Office Visit [facility] Rheumatology [address] [place] [address] Angélica Crystal DO [address] [facility], [address] [place] [address] [email or web address] Health Maintenance Due Date Last Done [...] topic Medical Devices Not on file Insurance [facility] [place] [address] [place] [address] [place] [address] Care Teams Roofing Applicator Relationship Specialty Start Date End Date Rakesh Tse MD [address] [place] [address] PCP - General Internal Medicine 11/15/22 Additional Source Comments The information contained in this document represents components of the legal health record. It is not the complete legal health record.[facility]
== END 2025-01-27 10:21 | disposition home or self-care (01) ==
LOC: HO.HMGAL 09:59
PROVIDERS: PCP Internal Medicine Rheumatology; Visit Provider Registered Nurse Emergency
DX: J30.89 Other allergic rhinitis (principal)
CPT/HCPCS: 95117; 95165

== ENCOUNTER 2025-02-10 10:16 | Outpatient (AMB) | payer BC, SELFPAY ==
--- OUTSIDE RECORDS SUMMARY | 2025-02-10 11:55 | XMS_ITS | Clinical Summary ---
Author Organization [facility] Address [address] [place] [address] Phone Care Team Providers Care Biodiesel Process Control Technician Name Role Phone Rakesh Tse MD Primary [...] Type Department Care Team Description 12/16/2024 Telephone [facility] Rheumatology [address] [place] [address] Snehal Gentile MD, MPH Appointment from Last [...] Description 04/15/2025 2:00 PM EST Office Visit [facility] Rheumatology [address] [place] [address] Angélica Crystal DO [address] [facility], [address] [place] [address] [email or web address] Health Maintenance Due Date Last Done Comments [...] topic Medical Devices Not on file Insurance [facility] [place] [address] [place] [address] [place] [address] Care Teams Biodiesel Process Control Technician Relationship Specialty Start Date End Date Rakesh Tse MD [address] [place] [phone] PCP - General Internal Medicine 11/15/22 Additional Source Comments The information contained in this document represents components of the legal health record. It is not the complete legal health record.[facility]
== END 2025-02-10 10:52 | disposition home or self-care (01) ==
LOC: HO.HMGAL 10:16
PROVIDERS: PCP Internal Medicine Rheumatology; Visit Provider Registered Nurse Emergency
DX: J30.89 Other allergic rhinitis (principal)
CPT/HCPCS: 95117; 95165